=== PATIENT | male | born 1955 | race Caucasian/White ===

== ENCOUNTER → 2019-12-02 12:50 | Outpatient (CLI) | payer MEDICARE, MEDICAID, SELFPAY ==
--- NOTE | 2019-12-02 12:58 | CDU_ITS ---
Reason For Study: Stenosis Rt. Velocities/BP Lt. Velocities/BP Prox CCA 66.9/9.5 cm/sec. Prox CCA 73.6/13.3 cm/sec. Mid CCA 66.2/11.3 cm/sec. Mid CCA 99.1/15.1 cm/sec. Dist CCA 64/14.6 cm/sec. Dist CCA 84.5/18.8 cm/sec. Prox ICA 104.7/20.6 cm/sec. Bulb 130.2/20.6 cm/sec. Mid ICA 88.8/21.2 cm/sec. Prox ICA 90.4/17.9 cm/sec. Dist ICA 87.6/18.8 cm/sec. Mid ICA 102.3/29.8 cm/sec. Rt. ICA/CCA = 1.6. Dist ICA 87.6/26.2 cm/sec. Prox ECA 291.4/16.9 cm/sec. Lt. ICA/CCA = 1.2. Rt. Vert. 56.4/12.4 cm/sec. Prox ECA 152.1/9.4 cm/sec. Lt. Vert. 93.7/17 cm/sec. Right Extracranial There is heterogeneous, irregular atherosclerotic plaque noted in the right common carotid artery. There is heterogeneous, irregular atherosclerotic plaque noted in the right internal carotid artery. There is heterogeneous, irregular atherosclerotic plaque noted in the right external carotid artery. Antegrade flow is noted in the right vertebral artery. Left Extracranial There is heterogeneous, irregular atherosclerotic plaque noted in the left common carotid artery. There is heterogeneous, irregular atherosclerotic plaque noted in the left internal carotid artery. There is heterogeneous, irregular atherosclerotic plaque noted in the left external carotid artery. Antegrade flow is noted in the left vertebral artery. There is heterogeneous, irregular atherosclerotic plaque noted in the left bulb. Procedure Carotid Duplex [id number]. Exam performed in department. Interpretation Summary Mild (<50%) stenosis right extracranial internal carotid. Mild (<50%) stenosis left extracranial internal carotid. Flow within the vertebral arteries is antegrade bilaterally. Ordering Physician: Napoleon Holliday Referring Physician: Marlyn Swanson Performed By: Tasneem Paul RVT and Student
== END ==
PROVIDERS: PCP Family Medicine; Referring Provider Surgery Vascular Surgery; Visit Provider Surgery Vascular Surgery
DX: I73.9 Peripheral vascular disease, unspecified (principal); I65.23 Occlusion and stenosis of bilateral carotid arteries; I10 Essential (primary) hypertension; E78.00 Pure hypercholesterolemia, unspecified; I51.9 Heart disease, unspecified; R73.09 Other abnormal glucose; Z87.891 Personal history of nicotine dependence; Z86.73 Personal history of transient ischemic attack (TIA), and cerebral infarction without residual deficits
CPT/HCPCS: 93880

== ENCOUNTER → 2019-12-15 10:10 | Outpatient (CLI) | payer MEDICARE, MEDICAID, SELFPAY ==
--- NOTE | 2019-12-15 10:13 | ADU_ITS ---
Reason For Study: PVD Right Velocities Left Velocities Ext. Iliac Artery, dist = 176.9 cm./sec. Ext Iliac Artery, dist = 97.9 cm./sec. Common Femoral Artery, mid = 150.5 cm./sec. Common Femoral Artery, mid = 155 cm./sec. Supf Femoral Artery, prox = 154.2 cm./sec. Supf. Femoral Artery, prox = 106.7 cm./sec. Supf Femoral Artery, mid = 118 cm./sec. Supf. Femoral Artery, mid = 148.4 cm./sec. Supf Femoral Artery, dist. = 304.9 cm./sec. Supf. Femoral Artery, dist = 88.8 cm./sec. Profunda Femoral Artery = 141.4 cm./sec. Profunda Femoral Artery = 144 cm./sec. Popliteal Artery, prox. = 107 cm./sec. Popliteal Artery, proximal, = 180.3 cm./sec. Popliteal Artery, mid = 112.5 cm./sec. Popliteal Artery, mid = 105.2 cm./sec. Popliteal Artery, dist = 108.8 cm./sec. Popliteal Artery, distal = 110.6 cm./sec. Post. Tibial Artery, prox = 75.7 cm./sec. Peroneal Artery, prox = 62.3 cm./sec. Post. Tibial Artery, mid = 87.9 cm./sec. Peroneal Artery, mid = 92.9 cm./sec. Post. Tibial Artery, dist = 84.3 cm./sec. No flow noted in the left FINISHING FRAME RUNNER, RADHA and distal Peroneal Artery, prox = 20.4 cm./sec. PeroA. Ant. Tibial Artery, dist = 16.1 cm./sec. No flow noted in the right PeroA from mid to distal and RADHA. Procedure Exam performed in department. Interpretation Summary 1. Right peroneal and anterior tibial occluded. Otherwise widely patent with moderate severe right SFA stenosis. 2. Neartriphasic flow leftleg through popliteal and peroneal, but no flow noted anterior tibial, posterior tibialand distal peroneal artery. Ordering Physician: Napoleon Holliday Referring Physician: Marlyn Swanson Performed By: Sury Roman RVT
--- NOTE | 2019-12-15 10:13 | ART_ITS ---
Reason For Study: PVD Procedure A bilateral lower extremity continuous wave Doppler with analog waveform analysis and ankle brachial indexes. Left Segmental Pressures Left brachial= 159mmHg. Left posterior tibial artery = 127mmHg. Left dorsalis pedis artery = 153mmHg. Left digit = 109 mmHg. The left dorsalis pedis waveforms are biphasic. The left posterior tibial artery waveforms are biphasic. Right Segmental Pressures Right brachial= 161mmHg. Right posterior tibial artery = 205mmHg. Right dorsalis pedis artery = 169mmHg. Right digit = 98 mmHg. The right dorsalis pedis waveforms are biphasic. The right posterior tibial artery waveforms are biphasic. Indices The right ankle brachial index by the dorsalis pedis is 1.05. The right ankle brachial index by the posterior tibial artery is 1.27. The right digital-brachial index is 0.61. The left ankle brachial index by the dorsalis pedis is 0.95. The left ankle brachial index by the posterior tibial artery is 0.79. The left digital-brachial index is 0.68. Interpretation Summary 1. Right leg biphasic and ANDREA 1.27. 2. Left leg biphasic and ANDREA 1.05. 3. DBI 0.61 and 0.68. Ordering Physician: Napoleon Holliday Referring Physician: Marlyn Swanson Performed By: Sury Roman RVT
== END ==
PROVIDERS: PCP Family Medicine; Referring Provider Surgery Vascular Surgery; Visit Provider Surgery Vascular Surgery
DX: I73.9 Peripheral vascular disease, unspecified (principal); I65.23 Occlusion and stenosis of bilateral carotid arteries; I51.9 Heart disease, unspecified; I10 Essential (primary) hypertension; R73.09 Other abnormal glucose; Z87.891 Personal history of nicotine dependence; Z86.73 Personal history of transient ischemic attack (TIA), and cerebral infarction without residual deficits
CPT/HCPCS: 93922; 93925

== ENCOUNTER → 2020-12-04 09:26 | Outpatient (CLI) | payer MEDICARE, MEDICAID, SELFPAY ==
--- NOTE | 2020-12-04 09:30 | ADU_ITS ---
Reason For Study: PVD Right Velocities Left Velocities Ext. Iliac Artery, dist = 199.2 cm./sec. Ext Iliac Artery, dist = 112.5 cm./sec. Common Femoral Artery, mid = 153.8 cm./sec. Common Femoral Artery, mid = 130.7 cm./sec. Supf Femoral Artery, prox = 166.8 cm./sec. Supf. Femoral Artery, prox = 79.6 cm./sec. Supf Femoral Artery, mid = 111.1 cm./sec. Supf. Femoral Artery, mid = 68.7 cm./sec. Supf Femoral Artery, dist. = 296.2 cm./sec. Supf. Femoral Artery, dist = 192.7 cm./sec. Profunda Femoral Artery = 277.4 cm./sec. Profunda Femoral Artery = 150.6 cm./sec. Popliteal Artery, prox. = 128.4 cm./sec. Popliteal Artery, proximal, = 117.6 cm./sec. Popliteal Artery, mid = 116.2 cm./sec. Popliteal Artery, mid = 206.1 cm./sec. Popliteal Artery, dist = 125.3 cm./sec. Popliteal Artery, distal = 247.6 cm./sec. Post. Tibial Artery, prox = 101.5 cm./sec. Peroneal Artery, prox = 70.5 cm./sec. Post. Tibial Artery, mid = 106.9 cm./sec. Peroneal Artery, mid = 114.4 cm./sec. Post. Tibial Artery, dist = 88.7 cm./sec. Ant. Tibial Artery, distal = 13.8 cm./sec. Ant. Tibial Artery, prox = 18.8 cm./sec. No Flow noted in the FORK REPAIRER, PeroA distal and RADHA No flow noteed in the PeroA, and RADHA mid-distal. mid-distal. Procedure Exam performed in department. Interpretation Summary Right leg moderate stenosis distal femoral. Left leg with moderate popliteal stenosis. Both legs with multiple tibial occlussions. Ordering Physician: Napoleon Holliday Referring Physician: Marlyn Swanson Performed By: Sury Roman RVT
--- NOTE | 2020-12-04 09:30 | ART_ITS ---
Reason For Study: PVD Procedure A bilateral lower extremity continuous wave Doppler with analog waveform analysis and ankle brachial indexes. Left Segmental Pressures Left brachial= 165mmHg. Left posterior tibial artery = 94mmHg. Left dorsalis pedis artery = 155mmHg. Left digit = 81 mmHg. The left dorsalis pedis waveforms are biphasic. The left posterior tibial artery waveforms are biphasic. Right Segmental Pressures Right brachial= 177mmHg. Right posterior tibial artery = 181mmHg. Right dorsalis pedis artery = 215mmHg. Right digit = 115 mmHg. The right dorsalis pedis waveforms are biphasic. The right posterior tibial artery waveforms are biphasic. Indices The right ankle brachial index by the dorsalis pedis is 1.21. The right ankle brachial index by the posterior tibial artery is 1.02. The right digital-brachial index is 0.65. The left ankle brachial index by the dorsalis pedis is 0.88. The left ankle brachial index by the posterior tibial artery is 0.53. The left digital-brachial index is 0.46. Interpretation Summary Bilateral biphasic flow at the ankle. normal flow righ leg with ANDREA 1.21 and mild left leg at 0.88. DBI 0.66 and 0.46. Ordering Physician: Napoleon Holliday Referring Physician: Marlyn Swanson Performed By: Sury Roman RVT
== END ==
PROVIDERS: PCP Family Medicine; Referring Provider Surgery Vascular Surgery; Visit Provider Surgery Vascular Surgery
DX: I70.213 Atherosclerosis of native arteries of extremities with intermittent claudication, bilateral legs (principal); I65.23 Occlusion and stenosis of bilateral carotid arteries; E78.70 Disorder of bile acid and cholesterol metabolism, unspecified; R73.09 Other abnormal glucose; I63.9 Cerebral infarction, unspecified; I51.9 Heart disease, unspecified; Z87.891 Personal history of nicotine dependence
CPT/HCPCS: 93922; 93925